=== PATIENT | male | born 1965 | race Caucasian/White ===

== ENCOUNTER 2020-05-01 13:16 | Emergency (ER) | payer OTHER ==
[~2020-05-01] VITALS: Ht 162.6 cm; Wt 76.2 kg
[2020-05-01 13:22] VITALS: BP 135/92
[2020-05-01] MEDS ORDERED: KETOROLAC 60 MG/2 ML VIAL IM ONE (13:45)
[2020-05-01 14:41] VITALS: BP 135/92
== END 2020-05-01 14:41 | disposition home or self-care (01) ==
LOC: MED 13:16
DX: M25.562 Pain in left knee (principal)
CPT/HCPCS: 29505; 73562; 96372; 99283; J1885